=== PATIENT | female | born 1995 | race Caucasian/White ===

== ENCOUNTER → 2017-11-29 | Outpatient (CLI) | payer OTHER ==
[~2017-11-29] MED LIST: APAP500 PO; COLACE 100 MG100 MG PO; IBUPROFEN 800800 M1 PO; IRON325; LANOLIN56 GM; LORTAB 5 MG/5001 TA1 PO; NORCO 5-325 TA1 EACH PO; PRENATAL
== END ==
LOC: NUC 11:51
DX: R11.2 Nausea with vomiting, unspecified (principal); R10.11 Right upper quadrant pain